=== PATIENT | female | born 1960 | race Two or more races ===

== ENCOUNTER 2016-09-19 17:30 | Emergency (ER) | payer OTHER ==
[~2016-09-19] VITALS: Ht 163.8 cm; Wt 69.9 kg
--- NOTE | 2016-09-19 18:03 | Emergency Room Report ---
History of Present Illness General Chief Complaint: Lower Extremity Injury Source: Patient (ALOK BOND) Present Illness HPI The patient is a 56-year-old female presenting with left toe pain which began 4 days prior after dropping a metal suitcase onto the toe. The patient states that the pain is a 9/10 throbbing and is localized to the big toe. The patient denies numbness or tingling. Patient denies prior injury of the foot. The patient is able to walk, but with pain. The patient did not notice any bleeding. The patient denies any other symptoms ([email or web address]) Allergies: Coded Allergies: No Known Allergies (Unverified , 09/19/16) Patient History Past Medical History: see triage record Pertinent Family History: none Reviewed Nursing Documentation: PMH: Agreed, PSxH: Agreed (ALOK BOND) Nursing Documentation-PMH Past Medical History: No Stated History (ALOK BOND) Review of Systems All Other Systems: negative except mentioned in HPI (ALOK BOND) Physical Exam Vital Signs Date Time Temp Pulse Resp B/P Pulse Ox O2 Delivery O2 Flow Rate FiO2 09/19/16 17:36 97.7 77 18 103/64 98 Room Air Sp02 EP Interpretation: reviewed, normal General Appearance: no apparent distress, alert, GCS 15, non-toxic Head: normocephalic, atraumatic Eyes: bilateral eye PERRL, bilateral eye normal inspection ENT: hearing grossly normal, normal pharynx, no angioedema, normal voice Respiratory: chest non-tender, lungs clear, normal breath sounds, speaking full sentences Musculoskeletal: back normal, normal range of motion, no calf tenderness, tender - TTP over distal L first toe Neurologic: alert, oriented x3, responsive, motor strength/tone normal, sensory intact, speech normal Psychiatric: judgement/insight normal, memory normal, mood/affect normal, no suicidal/homicidal ideation Skin: palpation normal, abrasions - superficial abrasion to the ventral surface of L 1st toe Lymphatic: no adenopathy (ALOK BOND) Medical Decision Making PA Attestation Dr. Mcintyre is my supervising physician. Patient management was discussed with my supervising physician (TERZIAN,ALOK P.A.) Diagnostic Impression: Primary Impression: Contusion, toe ER Course The patient is a 56-year-old female presenting with left toe pain which began 4 days prior after dropping a metal suitcase onto the toe. Ddx considered include but not limited to sprain/strain, fracture, contusion PE: Vitals WNL. NAD L 1st toe: Full AROM. SILT. No subungual hematoma. Nail intact. No ecchymosis. No edema. Superficial abrasion to superior surface. X-ray of the foot is unremarkable. Pt given a motrin for pain. Bacitracin is applied over the abrasion with sterile dressing. Pt given walking shoe and will be DC'ed home ([email or web address] [email or web address]) ER Course Scribe documentation reviewed by me and is accurate (Chance Mcintyre M.D.) Other X-Ray Diagnostic Results Other X-Ray Diagnostic Results : X-Ray Ordered: L foot Date: Sep 19, 2016 EP Interpretation: Yes Findings: no fractures, no dislocation, no soft tissue swelling Number of Views: 3 PA Scribe Text I am acting as scribe for my supervising physician. My supervising physician's interpretation of the L foot xrays are there are no fractures, dislocations or soft tissue swelling. (ALOK BOND P.A.) Last Vital Signs Date Time Temp Pulse Resp B/P Pulse Ox O2 Delivery O2 Flow Rate FiO2 09/19/16 17:36 97.7 77 18 103/64 98 Room Air Status: improved (ALOK BOND P.A.) Disposition: HOME, SELF-CARE Condition: Improved Scripts Tramadol Hcl* (ULTRAM*) 50 Mg Tablet 50 MG ORAL Q6H Y for For Pain, #6 TAB 0 Refills Prov: ALOK BOND P.A. 09/19/16 Ibuprofen* (MOTRIN*) 600 Mg Tablet 600 MG ORAL Q8H Y for For Pain, #30 TAB 0 Refills Prov: DANITZA BONDY P.A. 09/19/16 DANITZA BONDY P.A. Sep 19, 2016 18:03 Chance Mcintyre M.D. Sep 24, 2016 07:02
[2016-09-19] MEDS ORDERED: Bacitracin Oint UD TOPIC ONE (18:30)
[2016-09-19] MEDS ORDERED: IBUPROFEN600 MG ORAL (18:33)
[2016-09-19] MEDS ORDERED: TRAMADOL HCL50 MG ORAL (18:33)
[2016-09-19 19:00] VITALS: BP 103/64
--- NOTE | 2016-09-20 10:28 | Diagnostic Imaging Report ---
Indications: Left foot injury, pain Technique: 3 views left foot. Findings: Comparison: None No fracture, dislocation, joint space widening , surrounding soft tissue swelling/foreign body/other abnormality, or other acute changes are identified. IMPRESSION: No evidence of acute injury to the left foot.
== END 2016-09-19 19:01 | disposition home or self-care (01) ==
LOC: EMR 17:55
DX: S90.112A Contusion of left great toe without damage to nail, initial encounter (principal); W20.8XXA Other cause of strike by thrown, projected or falling object, initial encounter; Y92.9 Unspecified place or not applicable
CPT/HCPCS: 99283

== ENCOUNTER 2016-11-05 20:21 | Emergency (ER) | payer OTHER ==
[~2016-11-05] VITALS: Ht 162.6 cm; Wt 69.9 kg
[~2016-11-05 20:21] MED LIST: IBUPROFEN600 MG ORAL; TRAMADOL HCL50 MG ORAL
[2016-11-05 21:00] VITALS: BP 127/74
[2016-11-05] MEDS ORDERED: KEFLEX500 MG ORAL (21:36)
[2016-11-05] MEDS ORDERED: IBUPROFEN600 MG ORAL (21:36)
[2016-11-05] MEDS ORDERED: BACITRACIN ZIN1 EACH TOPIC (21:36)
--- NOTE | 2016-11-05 21:43 | Emergency Room Report ---
History of Present Illness General Chief Complaint: Wound Recheck/Suture Removal Source: Patient Present Illness HPI Patient is a 56-year-old female who presented after increased toe pain. Patient was noted to have a prior blunt trauma to her toe several weeks ago. Patient reported having increased pain and swelling. Patient reported having negative x-rays. Patient noticed increased swelling discharge. Patient denied fever. She had not been taking any new medications. Allergies: Coded Allergies: No Known Allergies (Unverified , 09/19/16) Patient History Past Medical History: see triage record Last Menstrual Period: Hysterectomy : 2 Para: 0 Reviewed Nursing Documentation: PMH: Agreed, PSxH: Agreed Nursing Documentation-PMH Past Medical History: No Stated History Review of Systems All Other Systems: negative except mentioned in HPI Physical Exam Vital Signs Date Time Temp Pulse Resp B/P Pulse Ox O2 Delivery O2 Flow Rate FiO2 11/05/16 20:45 97.9 71 16 127/74 99 Room Air General Appearance: well appearing, no apparent distress, alert, GCS 15 Head: normocephalic, atraumatic ENT: hearing grossly normal, normal voice Neck: full range of motion, supple Respiratory: no respiratory distress, speaking full sentences Musculoskeletal: no calf tenderness, swelling - swelling to great toe with mild periungal erythema, small subungual hematoma Neurologic: normal inspection, normal gait Psychiatric: mood/affect normal Skin: other - periungual erythema, small amount of discoloration to nailbed c/ w fungal infection Medical Decision Making Diagnostic Impression: Primary Impression: Ingrown toenail Additional Impression: Subungual hematoma ER Course Patient presented for toe pain.Patient presented for toe pain. Differential diagnosis included wasn't limited to osteomyelitis, fracture, ingrown toenail, contusion, gouty arthritis among others. Patient's benign exam and does not appear to require any further imaging or laboratory testing at this time. The patient's wound appears mildly infected. Subungual hematoma does not appear amenable to drainage.The patient is advised to follow up with lug loader as previously scheduled. Patient is advised to return if any worsening condition or if any changes in status that are concerning. Last Vital Signs Date Time Temp Pulse Resp B/P Pulse Ox O2 Delivery O2 Flow Rate FiO2 11/05/16 20:45 97.9 71 16 127/74 99 Room Air Status: improved Disposition: HOME, SELF-CARE Condition: Stable Scripts Bacitracin Zinc* (BACITRACIN ZINC*) 1 Each Packet 1 APPLIC TOPIC THREE TIMES A DAY, #30 PACKET Prov: Shade Wood 11/05/16 Ibuprofen* (MOTRIN*) 600 Mg Tablet 600 MG ORAL Q8H Y for For Pain, #30 TAB 0 Refills Prov: Shade Wood 11/05/16 Cephalexin* (KEFLEX*) 500 Mg Capsule 500 MG ORAL EVERY 6 HOURS, #28 CAP 0 Refills Prov: Shade Wood 11/05/16 Patient Instructions: Subungual Hematoma, Ingrown Toenail Shade Wood Nov 05, 2016 21:43
[2016-11-05] MEDS ORDERED: Cephalexin 500mg cap ORAL ONE (21:45)
[2016-11-05] MEDS ORDERED: Bacitracin Oint UD TOPIC ONE (21:45)
[2016-11-05] MEDS ORDERED: TRAMADOL HCL50 MG ORAL (22:01)
[2016-11-05 22:03] VITALS: BP 127/74
== END 2016-11-05 22:05 | disposition home or self-care (01) ==
LOC: EMR 21:12
DX: L60.0 Ingrowing nail (principal); S90.119A Contusion of unspecified great toe without damage to nail, initial encounter; Z90.710 Acquired absence of both cervix and uterus; W22.8XXA Striking against or struck by other objects, initial encounter; Y92.9 Unspecified place or not applicable; Y99.8 Other external cause status
CPT/HCPCS: 99284

== ENCOUNTER 2017-05-26 20:26 | Emergency (ER) | payer OTHER ==
[~2017-05-26] VITALS: Ht 162.6 cm; Wt 67.6 kg
[~2017-05-26 20:26] MED LIST changes: +BACITRACIN ZIN1 EACH TOPIC; +KEFLEX500 MG ORAL
[2017-05-26 21:00] VITALS: BP 114/46
[2017-05-26] MEDS ORDERED: Cephalexin 500mg cap ORAL ONE (21:30)
[2017-05-26] MEDS ORDERED: KEFLEX500 MG ORAL (21:31)
[2017-05-26] MEDS ORDERED: ACETAMINOPHEN-1 EAC1 ORAL (21:31)
[2017-05-26 21:45] VITALS: BP 122/75
--- NOTE | 2017-05-26 22:36 | Emergency Room Report ---
History of Present Illness General Chief Complaint: Pain Source: Patient Present Illness HPI 56-year-old female presents ED for evaluation. Patient is complaining of pain to her left big toe x2 weeks. States that in October he had an injury to her left foot. States she's had on and off problems with her left toe. States that she was told by her PMD that there is a infection under her toe and the toe nail needs to be removed. Patient states that she is awaiting referral for diagnostic imaging manager but it may be another 3 weeks. Patient states the pain as throbbing , 8/10, nonradiating. Denies fevers or chills. No other aggravating relieving factors. Denies any other associated symptoms Allergies: Coded Allergies: No Known Allergies (Unverified , 09/19/16) Patient History Past Medical History: none Past Surgical History: none Pertinent Family History: none Social History: Denies: smoking, alcohol use, drug use Now: No Immunizations: UTD Reviewed Nursing Documentation: PMH: Agreed, PSxH: Agreed Nursing Documentation-PMH Past Medical History: No Stated History Review of Systems All Other Systems: negative except mentioned in HPI Physical Exam Vital Signs Date Time Temp Pulse Resp B/P (MAP) Pulse Ox O2 Delivery O2 Flow Rate FiO2 05/26/17 20:54 97.7 60 16 114/46 99 05/26/17 21:00 Room Air Sp02 EP Interpretation: reviewed, normal General Appearance: no apparent distress, alert, GCS 15, non-toxic Head: normocephalic Eyes: bilateral eye normal inspection, bilateral eye PERRL ENT: normal ENT inspection Neck: normal inspection Respiratory: normal inspection Cardiovascular #1: normal inspection Gastrointestinal: normal inspection Rectal: deferred Genitourinary: no CVA tenderness Musculoskeletal: tender Neurologic: alert, oriented x3, responsive, motor strength/tone normal, sensory intact, speech normal Psychiatric: normal inspection Skin: other - induration/erythema to L big toe. discoloration under nail Lymphatic: normal inspection Medical Decision Making Diagnostic Impression: Primary Impression: Ingrown toenail ER Course Hospital Course 56 yo F presents with pain/swelling to L big toe Differential diagnoses include: Cellulitis, dermatitis, insect bite, abscess Clinical course Patient placed on stretcher. After initial history, physical exam reveals a female in no acute distress. On exam there is induration and erythema to left big toe. There is discoloration underneath the nailbed suggestive of purulent discharge. I explained to the patient that we will need to remove the toenail in order to effectively treat the infection. Patient states that she does not want a toenail removed at this time. Like to try antibiotics first Agreed to provide her with antibiotics but I do not believe the infection will be properly treated without toenail removal. I explained to the patient this. Told her to watch closely and return to ED sooner if symtpoms worsen Patient given Keflex in ED Diagnosis - ingrown toenail stable and discharged to home with prescription for Tylenol #3, Keflex. Instructed to followup with podiatry. Instructed return to ED if symptoms recur or worsen Last Vital Signs Date Time Temp Pulse Resp B/P (MAP) Pulse Ox O2 Delivery O2 Flow Rate FiO2 05/26/17 21:00 97.7 60 16 114/46 99 Room Air Status: improved Disposition: HOME, SELF-CARE Condition: Stable Scripts Acetaminophen With Codeine (T#3) (TYLENOL #3 TAB*) Y Tab 1 TAB ORAL Q8H Y for For Pain, #20 TAB Prov: MARA REYNOLDS M.D. 05/26/17 Cephalexin* (KEFLEX*) 500 Mg Capsule 500 MG ORAL Q6H, #28 CAP 0 Refills Prov: MARA REYNOLDS M.D. 05/26/17 Patient Instructions: Ingrown Toenail MARA REYNOLDS M.D. May 26, 2017 22:36
== END 2017-05-26 22:00 | disposition home or self-care (01) ==
LOC: EMR 21:47
DX: L60.0 Ingrowing nail (principal)
CPT/HCPCS: 99284

== ENCOUNTER 2017-11-04 15:10 | Emergency (ER) | payer OTHER, MEDICAID ==
[~2017-11-04] VITALS: Ht 162.6 cm; Wt 68.9 kg
[~2017-11-04 15:10] MED LIST changes: +ACETAMINOPHEN-1 EAC1 ORAL
--- NOTE | 2017-11-04 15:35 | Emergency Room Report ---
History of Present Illness General Chief Complaint: Lower Extremity Injury Source: Patient Present Illness HPI 57 yo female patient presents to ER complaining of right foot and ankle pain s/ p trip this morning at 7AM. Patient reports missed last step and twisted her ankle. Reports pain with moving toes. Patient reports unable to bear weight secondary to pain; reports ambulated into ER independently with "difficulty". Patient denies hitting head, LOC. Reports took Tylenol#3 for pain symptoms earlier today. Patient denies fever, chest pain, SOB. Reports drove herself to ER. Allergies: Coded Allergies: No Known Allergies (Unverified , 09/19/16) Patient History Past Medical History: see triage record Last Menstrual Period: 2003 Reviewed Nursing Documentation: PMH: Agreed, PSxH: Agreed Nursing Documentation-PMH Past Medical History: No Stated History Review of Systems All Other Systems: negative except mentioned in HPI Physical Exam Vital Signs Date Time Temp Pulse Resp B/P (MAP) Pulse Ox O2 Delivery O2 Flow Rate FiO2 11/04/17 15:15 98.6 82 18 124/78 95 Room Air 98.6 Sp02 EP Interpretation: reviewed, normal General Appearance: well appearing, no apparent distress, alert, GCS 15 Head: normocephalic, atraumatic Eyes: bilateral eye normal inspection, bilateral eye PERRL ENT: hearing grossly normal, normal pharynx, no angioedema, normal voice, uvula midline, moist mucus membranes Neck: full range of motion Respiratory: lungs clear, normal breath sounds, no rhonchi, no respiratory distress, no accessory muscle use, no wheezing, speaking full sentences Cardiovascular #1: regular rate, rhythm Cardiovascular #2: 2+ dorsalis pedis (R), 2+ dorsalis pedis (L) Musculoskeletal: back normal, digits/nails normal, gait/station normal, normal range of motion - ankle, able to wiggle toes, non-tender, no calf tenderness, decreased range of motion - inversion, eversion of foot secondary to pain, swelling - and ecchymosis of lateral aspect of dorsum of foot, other - NVI, negative syndesmotic squeeze test, tender - TTP along fifth metatarsal Neurologic: alert, oriented x3, responsive, motor strength/tone normal, sensory intact Psychiatric: mood/affect normal Skin: no rash Lymphatic: no adenopathy Medical Decision Making PA Attestation Dr. Duran is my supervising Physician whom patient management has been discussed with. Diagnostic Impression: Primary Impression: Injury of lower extremity ER Course Pt. presents to the ED c/o foot pain. Ddx considered but are not limited to fracture, sprain, strain, contusion. Vital signs: are WNL, pt. is afebrile ORDERS: An X-ray of the right foot and ankle were ordered, results show no acute fracture, per the preliminary radiology report. Negative for noe fracture. ED INTERVENTIONS: Walking shoe provided to patient. The affected foot was checked afterwards by me showing good alignment and support with distal neurovascular functioning intact. Crutches provided. DISCHARGE: -Rx provided for Tylenol for pain symptoms. At this time pt. is stable for d/c to home. Resting comfortably in bed, in no acute distress, nontoxic appearing. Will provide printed patient care instructions, and any necessary prescriptions. Patient instructed to follow with primary care provider in 3 - 5 days and to request further orthopedic follow-up. Care plan and follow up instructions have been discussed with the patient prior to discharge. Patient instructed on RICE method: rest, ice, compression, elevation. Patient instructed to WBAT. Take medications as directed. Patient questions asked and answered. ER precautions given, patient instructed to return to ER immediately for any new or worsening of symptoms. Other X-Ray Diagnostic Results Other X-Ray Diagnostic Results #1: X-Ray ordered: right ankle # of Views/Limited Vs Complete: 3 View Indication: Pain PA Xray: Interpretation reviewed, by supervising MD, and agrees with findings. Interpretation: no dislocation, no soft tissue swelling, no fractures Impression: No acute disease PA Scribe Roderick Sanchez PA-C Other X-Ray Diagnostic Results #2: X-Ray ordered: right foot # of Views/Limited Vs Complete: 2 View Indication: Pain EP Interpretation: Yes PA Xray: Interpretation reviewed, by supervising MD, and agrees with findings. Interpretation: no dislocation, no soft tissue swelling, no fractures Impression: No acute disease PA Scribe Text Eldon Sanchez PA-C Last Vital Signs Date Time Temp Pulse Resp B/P (MAP) Pulse Ox O2 Delivery O2 Flow Rate FiO2 11/04/17 15:15 98.6 82 18 124/78 95 Room Air 98.6 Disposition: HOME, SELF-CARE Condition: Stable Scripts Acetaminophen* (TYLENOL EXTRA STRENGTH*) 500 Mg Tablet 500 MG ORAL Q8H Y for Prn Headache/Temp > 101, #30 TAB 0 Refills Prov: Hema Sanchez 11/04/17 Patient Instructions: Foot Sprain Additional Instructions: Patient instructed to follow up with primary care provider and discuss further referral to orthopedics. Patient instructed on RICE method: rest, ice, compression, elevation. Patient instructed to WBAT. Take medications as directed. Patient questions asked and answered. ER precautions given, patient instructed to return to ER immediately for any new or worsening of symptoms. Hema Sanchez Nov 04, 2017 15:35
[2017-11-04] MEDS ORDERED: TYLENOL EXTRA500 MG ORAL (16:27)
--- NOTE | 2017-11-04 16:33 | Diagnostic Imaging Report ---
Indication: Pain right ankle ankle pain/trauma Comparison: None Findings: 3 views of the right ankle obtained. No acute fracture, malalignment, periostitis, or osteochondral defects are identified. Soft tissues are unremarkable. Impression: Negative examination
--- NOTE | 2017-11-04 16:51 | Diagnostic Imaging Report ---
Indication: Pain Comparison: None Findings: 3 views of the right foot were obtained. No acute fractures, malalignment, erosions or periostitis are identified. Soft tissues are unremarkable. Impression: No acute findings.
[2017-11-04 16:55] VITALS: BP 124/78
== END 2017-11-04 16:56 | disposition home or self-care (01) ==
LOC: EMR 16:20
DX: S99.921A Unspecified injury of right foot, initial encounter (principal); M25.571 Pain in right ankle and joints of right foot; X50.1XXA Overexertion from prolonged static or awkward postures, initial encounter; Y92.9 Unspecified place or not applicable
CPT/HCPCS: 29540; 99284

== ENCOUNTER 2020-10-02 10:02 | Emergency (ER) | payer OTHER ==
[~2020-10-02] VITALS: Ht 162.6 cm; Wt 77.1 kg
[~2020-10-02 10:02] MED LIST changes: +TYLENOL EXTRA500 MG ORAL
[2020-10-02] MEDS ORDERED: Omnipaque 350 100ml vial INJ PRN (10:15)
--- NOTE | 2020-10-02 10:29 | Emergency Room Report ---
History of Present Illness General Chief Complaint: Generalized Weakness Source: Patient Present Illness HPI 60-year-old female recent diagnosis of Covid August 28, now presents with a few days of shortness of breath dyspnea, chest pain with deep breathing severity is moderate, intermittent, no dyspnea on exertion no constant chest pressure patient states she has pleuritic chest pain no known medical problems patient presents for evaluation Allergies: Coded Allergies: No Known Allergies (Unverified , 09/19/16) COVID-19 Screening Contact w/high risk pt: No Experienced COVID-19 symptoms?: Yes COVID-19 Testing performed TV HOST: Yes - 08/28/20 COVID-19 Screening: Positive COVID-19 COVID-19 Testing Source: nasal Patient History Past Medical History: see triage record Reviewed Nursing Documentation: PMH: Agreed; PSxH: Agreed Nursing Documentation-PMH Past Medical History: No Stated History Review of Systems All Other Systems: negative except mentioned in HPI Physical Exam Vital Signs Date Time Temp Pulse Resp B/P (MAP) Pulse Ox O2 Delivery O2 Flow Rate FiO2 10/02/20 10:16 98.2 87 14 114/85 (95) 98 Room Air Sp02 EP Interpretation: reviewed, normal General Appearance: well appearing, no apparent distress, alert Head: normocephalic, atraumatic Eyes: bilateral eye PERRL, bilateral eye EOMI ENT: uvula midline, moist mucus membranes Neck: supple, thyroid normal, supple/symm/no masses Respiratory: lungs clear, no respiratory distress, no retraction, no accessory muscle use Cardiovascular #1: normal peripheral pulses, regular rate, rhythm, no edema, no gallop, no murmur Gastrointestinal: non tender, soft, no guarding, no rebound Musculoskeletal: normal inspection Neurologic: alert, oriented x3 Psychiatric: mood/affect normal Skin: no rash, warm/dry Medical Decision Making Diagnostic Impression: Primary Impression: Chest pain Qualified Codes: R07.9 - Chest pain, unspecified Additional Impression: Pleurisy ER Course 60-year-old female with pleuritic chest pain after recent Covid infection, differential diagnosis includes pleurisy, pulmonary embolism, new infection CTA negative, troponin negative, no dyspnea on exertion patient improved status post Combivent administration Additionally patient improved with morphine and ibuprofen, patient with most likely pleurisy No indications for admission, strict return precautions were discussed will provide patient with Tylenol and Motrin Laboratory Tests Test 10/02/20 10:30 White Blood Count 11.1 K/UL (4.8-10.8) H Red Blood Count 5.06 M/UL (4.20-5.40) Hemoglobin 13.9 G/DL (12.0-16.0) Hematocrit 43.4 % (37.0-47.0) Mean Corpuscular Volume 86 FL (80-99) Mean Corpuscular Hemoglobin 27.5 PG (27.0-31.0) Mean Corpuscular Hemoglobin Concent 32.0 G/DL (32.0-36.0) Red Cell Distribution Width 12.5 % (11.6-14.8) Platelet Count 315 K/UL (150-450) Mean Platelet Volume 9.0 FL (6.5-10.1) Neutrophils (%) (Auto) 72.7 % (45.0-75.0) Lymphocytes (%) (Auto) 17.8 % (20.0-45.0) L Monocytes (%) (Auto) 7.0 % (1.0-10.0) Eosinophils (%) (Auto) 1.3 % (0.0-3.0) Basophils (%) (Auto) 1.2 % (0.0-2.0) Prothrombin Time 10.7 SEC (9.30-11.50) Prothrombin Time INR 1.0 (0.9-1.1) Activated Partial Thromboplast Time 26 SEC (23-33) Sodium Level 141 MMOL/L (136-145) Potassium Level 4.8 MMOL/L (3.5-5.1) Chloride Level 103 MMOL/L (98-107) Carbon Dioxide Level 28 MMOL/L (21-32) Anion Gap 10 mmol/L (5-15) Blood Urea Nitrogen 14 mg/dL (7-18) Creatinine 0.7 MG/DL (0.55-1.30) Estimated Glomerular Filtration Rate > 60 mL/min (>60) Glucose Level 100 MG/DL (74-106) Calcium Level 9.9 MG/DL (8.5-10.1) Total Bilirubin 0.9 MG/DL (0.2-1.0) Aspartate Amino Transferase (AST) 23 U/L (15-37) Alanine Aminotransferase (ALT) 42 U/L (12-78) Alkaline Phosphatase 95 U/L (46-116) Troponin I 0.001 ng/mL (0.000-0.056) Total Protein 8.3 G/DL (6.4-8.2) H Albumin 4.1 G/DL (3.4-5.0) Globulin 4.2 g/dL Albumin/Globulin Ratio 1.0 (1.0-2.7) EKG Diagnostic Results Troponin ordered: Yes When was troponin ordered?: Oct 02, 2020 EKG Time: 10:25 EP Interpretation: NSR, rate 91, QTc 423, no acute ischemic changes Rhythm Strip Diag. Results Rhythm Strip Time: 10:34 EP Interpretation: yes Rate: 96 Rhythm: NSR, no PVC's, no ectopy Chest X-Ray Diagnostic Results Chest X-Ray Diagnostic Results : Chest X-Ray Ordered: Yes # of Views/Limited/Complete: 1 View Indication: Chest Pain EP Interpretation: Yes Interpretation: no consolidation, no effusion, no pneumothorax, no acute cardiopulmonary disease Impression: No acute disease Electronically Signed by: Juanito Starkey MD CT/MRI/US Diagnostic Results CT/MRI/US Diagnostic Results : Impression Procedure: CTA Chest w Contrast ndication: Shortness of breath Technique: IV administration nonionic contrast. Spiral acquisitions obtained from the lung bases to the lung apices. Multiplanar and 3-D reconstructions were generated on an integrated workstation. Total dose length product 223 mGycm. CTDIvol(s) 1, 2 6, 5 mGy. Dose reduction achieved using automated exposure control Comparison: none Findings: Pulmonary arterial opacification is adequate. No intraluminal filling defects or other findings to suggest acute pulmonary emboli are demonstrated. Normal caliber pulmonary arteries. No evidence of right ventricular dilatation. No evidence of thoracic aortic aneurysm or dissection. There is separate origin of left vertebral artery off of the aortic arch-normal anatomic variant. The lungs demonstrate posterior dependent atelectatic bands. There may also be some linear scarring at the lung bases. No infiltrates, effusions, masses, nodules demonstrated. There is mild thickening of the pericardium and questionably a small amount of pericardial fluid. The heart size is upper limits of normal. No mediastinal or hilar mass or adenopathy. There is a nodule in the left thyroid lobe lower pole which measures 1.7 cm long axis dimension. No axillary or chest wall mass or adenopathy. The included upper abdominal viscera are unremarkable. Impression: Negative for evidence of acute pulmonary embolus or other acute thoracic pathology Bilateral basilar dependent pulmonary atelectasis Mild pericardial thickening and equivocal trace pericardial fluid 1.7 cm left thyroid lobe nodule incidentally noted. Recommend further evaluation with thyroid sonography The CT scanner at [facility] is accredited by the [employer] and the scans are performed using protocols designed to limit radiat ion exposure to as low as reasonably achievable to attain images of sufficient resolution adequate for diagnostic evaluation. Dictated By: Abel Douglas MD Electronically Signed By:Abel Douglas MD Signed Date/Time10/02/20 1301 CC: Juanito Starkey MD Last Vital Signs Date Time Temp Pulse Resp B/P (MAP) Pulse Ox O2 Delivery O2 Flow Rate FiO2 10/02/20 10:16 98.2 87 14 114/85 (95) 98 Room Air Disposition: HOME, SELF-CARE Condition: Stable Scripts Acetaminophen (Tylenol) 325 Mg Tablet 650 MG ORAL Q6H PRN for Prn Pain/Headache/Temp > 101, #30 TAB 0 Refills Prov: Juanito Starkey MD 10/02/20 Ibuprofen* (MOTRIN*) 600 Mg Tablet 600 MG ORAL Q8H PRN for FOR PAIN, #20 TAB 0 Refills Prov: Juanito Starkey MD 10/02/20 Referrals: [facility] Patient Instructions: Nonspecific Chest Pain, [id number], Pleurisy, Easy-to- Read Additional Instructions: The patient was provided with discharge instructions, notified to follow-up with a primary care doctor and or specialist in the next 24-48 hours, and to return to the ED if they have worsening of their symptoms. Please note that this report is being documented using [employer] technology. This can lead to erroneous entry secondary to incorrect interpretation by the dictating instrument. Juanito Starkey MD Oct 02, 2020 10:29
[2020-10-02 10:34] VITALS: BP 114/85
--- NOTE | 2020-10-02 10:46 | NUR ---
ED Nurse Note: RX doesn't carry combivent inhaler, pt will be getting a duoneb tx
[2020-10-02 10:52] LABS: BASOPHILS % (AUTO) 1.2 % (0.0-2.0); EOSINOPHILS % (AUTO) 1.3 % (0.0-3.0); HEMATOCRIT 43.4 % (37.0-47.0); HEMOGLOBIN 13.9 G/DL (12.0-16.0); LYMPHOCYTES % (AUTO) 17.8 % (20.0-45.0); MEAN CORPUSCULAR VOLUME 86 FL (80-99); NEUTROPHILS % (AUTO) 72.7 % (45.0-75.0); PLATELET COUNT 315 K/UL (150-450); RED BLOOD COUNT 5.06 M/UL (4.20-5.40); RED CELL DISTRIBUTION WIDTH 12.5 % (11.6-14.8); WHITE BLOOD COUNT 11.1 K/UL (4.8-10.8)
[2020-10-02 10:53] VITALS: BP 111/73
[2020-10-02 11:02] LABS: ANION GAP 10 mmol/L (5-15); CARBON DIOXIDE 28 MMOL/L (21-32); CHLORIDE 103 MMOL/L (98-107); POTASSIUM 4.8 MMOL/L (3.5-5.1); SODIUM 141 MMOL/L (136-145)
[2020-10-02 11:09] LABS: ALANINE AMINOTRANSFERASE 42 U/L (12-78); ALBUMIN 4.1 G/DL (3.4-5.0); ALKALINE PHOSPHATASE 95 U/L (46-116); ASPARTATE AMINO TRANSFERASE 23 U/L (15-37); BILIRUBIN,TOTAL 0.9 MG/DL (0.2-1.0); BLOOD UREA NITROGEN 14 mg/dL (7-18); CALCIUM 9.9 MG/DL (8.5-10.1); CREATININE 0.7 MG/DL (0.55-1.30)
[2020-10-02] MEDS: Albuterol ud Inhalation HHN SCH ×3 (11:38→11:59)
[2020-10-02] MEDS: Ipratropium 0.02% Inh Soln 2.5ml UD HHN SCH ×3 (11:39→11:59)
[2020-10-02 12:25] VITALS: BP 138/58
[2020-10-02] MEDS ORDERED: Acetaminophen 500mg (ES) tab ORAL ONE ×2 (12:25→12:30)
--- NOTE | 2020-10-02 12:30 | NUR ---
ED Nurse Note:pt c/o headache, informed ERMD further orders given
--- NOTE | 2020-10-02 13:06 | Diagnostic Imaging Report ---
ndication: Shortness of breath Technique: IV administration nonionic contrast. Spiral acquisitions obtained from the lung bases to the lung apices. Multiplanar and 3-D reconstructions were generated on an integrated workstation. Total dose length product 223 mGycm. CTDIvol(s) 1, 26, 5 mGy. Dose reduction achieved using automated exposure control Comparison: none Findings: Pulmonary arterial opacification is adequate. No intraluminal filling defects or other findings to suggest acute pulmonary emboli are demonstrated. Normal caliber pulmonary arteries. No evidence of right ventricular dilatation. No evidence of thoracic aortic aneurysm or dissection. There is separate origin of left vertebral artery off of the aortic arch-normal anatomic variant. The lungs demonstrate posterior dependent atelectatic bands. There may also be some linear scarring at the lung bases. No infiltrates, effusions, masses, nodules demonstrated. There is mild thickening of the pericardium and questionably a small amount of pericardial fluid. The heart size is upper limits of normal. No mediastinal or hilar mass or adenopathy. There is a nodule in the left thyroid lobe lower pole which measures 1.7 cm long axis dimension. No axillary or chest wall mass or adenopathy. The included upper abdominal viscera are unremarkable. Impression: Negative for evidence of acute pulmonary embolus or other acute thoracic pathology Bilateral basilar dependent pulmonary atelectasis Mild pericardial thickening and equivocal trace pericardial fluid 1.7 cm left thyroid lobe nodule incidentally noted. Recommend further evaluation with thyroid sonography The CT scanner at [facility] is accredited by the [employer] and the scans are performed using protocols designed to limit radiation exposure to as low as reasonably achievable to attain images of sufficient resolution adequate for diagnostic evaluation.
[2020-10-02] MEDS ORDERED: IBUPROFEN600 M1 ORAL (13:18)
[2020-10-02] MEDS ORDERED: TYLENOL325 MG ORAL (13:21)
[2020-10-02 13:30] VITALS: BP 134/75
--- NOTE | 2020-10-02 13:30 | NUR ---
ER DISCHARGE NOTE: Patient is cleared to be discharged per ERMD, pt is aox4, on room air, with stable vital signs. pt was given dc and prescription instructions, pt was able to verbalize understanding, pt id band and iv site removed without complications. pt is able to ambulate with steady gait. pt took all belongings.
[2020-10-02 13:31] VITALS: BP 134/75
--- NOTE | 2020-10-02 15:54 | Diagnostic Imaging Report ---
Indication: Shortness of breath Technique: One view of the chest Comparison: none Findings: Lungs and pleural spaces are clear. Heart size is normal. Impression: No acute process
--- NOTE | 2020-10-04 02:24 | Cardiology Report ---
APPROVED REPORT EKG Measurement Heart [id number] <Conclusion> Normal sinus rhythm ST elevation, probably due to early repolarization Borderline ECG
== END 2020-10-02 13:33 | disposition home or self-care (01) ==
LOC: EMR 10:48
DX: R07.89 Other chest pain (principal); R09.1 Pleurisy; R06.02 Shortness of breath; Z86.16 Personal history of COVID-19
CPT/HCPCS: 36415; 71045; 71275; 80053; 84484; 85025; 85610; 85730; 93005; 94640; 99284; Q9967